=== PATIENT | male | born 1945 | race African-American/Black ===

== ENCOUNTER 2022-11-28 17:22 | Outpatient (REF) | payer OTHER, SELFPAY ==
[2022-11-28 17:43] LABS: Basophils Percent Auto 0.5 % (0.0-3.0); Eosinophils Percent Auto 6.5 % (0.0-7.0); Hematocrit 33.8 % (37.0-53.0); Hemoglobin* 9.6 gm/dL (13.5-17.5); Immature Granulocytes Pct Auto 0.2 %; Mean Corpuscular HGB Conc 28 gm/dL (32-36); Mean Corpuscular Hemoglobin 22 pg (26-34); Mean Corpuscular Volume 78 fL (80-100); Monocytes Percent Auto 8.9 % (0.0-11.0); Neutrophils Percent Auto 72.9 % (42.0-72.0); Platelet Count* 114 K/uL (140-440); RDW Coefficient of Variation % 17.2 % (11.5-15.5); Red Blood Count 4.35 m/uL (4.30-5.90); White Blood Count* 4.18 K/uL (4.50-11.00)
[2022-11-28 18:06] LABS: Slide Review Reflex Yes
[2022-11-28 18:08] LABS: Slide Review Acceptable Review (Acceptable)
[2022-11-28 18:25] LABS: Aspartate Amino Transferase* 21 U/L (12-35); Bilirubin Total* 0.5 mg/dL (0.1-1.5); Creatinine* 3.2 mg/dL (0.5-1.5); Estimated Glomerular Filt Rate 19 ml/min; Total Protein* 7.1 g/dL (6.0-8.3)
[2022-11-28 18:26] LABS: Alanine Aminotransferase* 12 U/L (4-50); Alkaline Phosphatase* 116 U/L (40-150)
== END 2022-11-28 17:23 | disposition home or self-care (01) ==
LOC: NPINS 17:22
PROVIDERS: PCP Internal Medicine Hematology & Oncology; Visit Provider Internal Medicine Hematology & Oncology
DX: I26.99 Other pulmonary embolism without acute cor pulmonale (principal)
CPT/HCPCS: 80076; 82565; 85025